=== PATIENT | male | born 1985 | race Caucasian/White ===

== ENCOUNTER 2022-10-08 16:04 | Emergency (ER) | payer BC, OTHER ==
[~2022-10-08] VITALS: Ht 182.9 cm; Wt 117.0 kg
[2022-10-08 16:13] VITALS: BP 151/84; PULSE 95; RESP 16; TEMP 98.4; O2SAT 95
== END 2022-10-08 18:22 | disposition left against medical advice (07) ==
LOC: ER 16:04
DX: M79.602 Pain in left arm (principal); Z53.21 Procedure and treatment not carried out due to patient leaving prior to being seen by health care provider
CPT/HCPCS: 99281